=== PATIENT | male | born 1975 | race Caucasian/White ===

== ENCOUNTER 2019-05-05 14:19 | Emergency (ER) | payer SELFPAY ==
[~2019-05-05] VITALS: Ht 175.3 cm; Wt 81.8 kg
[2019-05-05 14:20] VITALS: Ht 175.3 cm; Wt 81.8 kg
[2019-05-05] MEDS ORDERED: SOD CHLORIDE 0.9% 1,000 ML IV STA (14:26)
[2019-05-05] MEDS ORDERED: LEVETIRACETAM 1000 MG (PMX) 100 ML IVPB STA (14:26)
--- NOTE | 2019-05-05 15:38 | ERD ---
ER Documentation Chief Complaint Chief Complaint R88, altered, pinpoint pupils. possible seizure back to police car, HPI 43-year-old male with a history of seizure disorder brought in by ambulance for altered mental status and seizure-like activity prior to arrival. Per police at bedside, patient was arrested then while in the back of the car, he started having seizure-like activity. It lasted for 30 seconds. Afterwards he was poorly responsive. EMS arrived and noted that the patient had pinpoint pupils. He was given Narcan without any significant improvement of his mental status. Currently the patient has just woken up and states that he does have a history of seizures but is not taking his medications regularly. He is supposed to be on Keppra and Dilantin. He states that he sometimes uses drugs but has not used drugs within the last 10 days. Usually he uses methamphetamines but not any heroin. Currently he has no physical complaints. ROS All systems reviewed and are negative except as per history of present illness. Medications Home Meds Unable to Obtain Active Prescriptions or Reported Meds Allergies Allergies: Coded Allergies: Penicillins (Verified Allergy, Unknown, 05/05/19) PMhx/Soc Medical and Surgical Hx: Unable to obtain Anesthesia Reaction: No Hx Neurological Disorder: Yes (Seizure disorder, ) Hx Respiratory Disorders: No Hx Cardiac Disorders: No Hx Psychiatric Problems: No Hx Miscellaneous Medical Probl: Yes (stomach cancer) Hx Alcohol Use: Yes Hx Substance Use: Yes Hx Tobacco Use: Yes Smoking Status: Current every day smoker FmHx Family History: No diabetes Physical Exam Vitals Vital Signs Date Temp Pulse Resp B/P (MAP) Pulse Ox O2 O2 Flow FiO2 Time Delivery Rate 05/05/19 64 16 124/80 98 Room Air 18:46 (95) 05/05/19 66 16 135/89 98 Room Air 16:31 (104) 05/05/19 97.9 70 23 148/92 98 14:20 (110) Physical Exam Const: No acute distress Head: Atraumatic Eyes: Normal Conjunctiva, PERRLA, EOMI ENT: Normal External Ears, Nose and Mouth. Neck: Full range of motion. No meningismus. Resp: Clear to auscultation bilaterally Cardio: Regular rate and rhythm, no murmurs Abd: Soft, non tender, non distended. Normal bowel sounds Skin: No petechiae or rashes Back: No midline or flank tenderness Ext: No cyanosis, or edema Neur: Awake and alert, oriented to self and year, cranial nerves intact, normal speech, strength and sensations intact in all 4 extremities. Psych: Normal Mood and Affect Result Diagram: 05/05/19 1440 05/05/19 1440 Results 24 hrs Laboratory Tests Test 05/05/19 14:34 05/05/19 14:40 Bedside Glucose 111 mg/dL White Blood Count 7.4 10^3/ul Red Blood Count 5.18 10^6/ul Hemoglobin 9.4 g/dl Hematocrit 34.7 % Mean Corpuscular Volume 67.0 fl Mean Corpuscular Hemoglobin 18.1 pg Mean Corpuscular Hemoglobin Concent 27.1 g/dl Red Cell Distribution Width % Platelet Count 483 10^3/UL Mean Platelet Volume 9.1 fl Immature Granulocytes % 0.100 % Neutrophils % % Segmented Neutrophils % (Manual) 61 % Lymphocytes % % Lymphocytes % (Manual) 27 % Reactive Lymphocytes % (Manual) 2 % Monocytes % % Monocytes % (Manual) 7 % Eosinophils % % Eosinophils % (Manual) 2 % Basophils % % Basophils % (Manual) 1 % Nucleated Red Blood Cells % 0.0 /100WBC Immature Granulocytes # 0.010 10^3/ul Neutrophils # 10^3/ul Lymphocytes (Manual) 1.9 10^3/ul Lymphocytes # 10^3/ul Reactive Lymphocytes # 0.1 10^3/ul Monocytes # 10^3/ul Monocytes # (Manual) 0.5 10^3/ul Eosinophils # 10^3/ul Basophils # 10^3/ul Basophils # (Manual) 0.0 10^3/ul Nucleated Red Blood Cells # 10^3/ul Platelet Estimate NORMAL Giant Platelets 1 % Polychromasia 1+ Hypochromasia 1+ Poikilocytosis 1+ Anisocytosis 1+ Microcytosis 1+ Ovalocytes 1+ Sodium Level 146 mmol/L Potassium Level 3.8 mmol/L Chloride Level 107 mmol/L Carbon Dioxide Level 27 mmol/L Anion Gap 12 Blood Urea Nitrogen 19 mg/dl Creatinine 1.30 mg/dl Est Glomerular Filtrat Rate mL/min > 60 mL/min Glucose Level 105 mg/dl Calcium Level 9.3 mg/dl Phenytoin (Dilantin) Level < 3.0 ug/ml Current Medications Medications Dose Sig/Ana Start Time Status Last (Trade) Ordered Route PRN Stop Time Admin Dose Reason Admin Sodium 1,000 ml @ Q1H STAT 05/05/19 DC 05/05/19 Chloride 1,000 mls/hr IV 14:26 15:10 05/05/19 15:25 100 ml @ ONCE STAT 05/05/19 DC 05/05/19 Levetiracetam 400 mls/hr IVPB 14:26 15:10 05/05/19 14:40 Phenytoin 300 mg ONCE ONCE 05/05/19 DC 05/05/19 (Dilantin) PO 18:30 18:26 05/05/19 18:31 Procedures/MDM EMERGENT LABS AND DIAGNOSTIC STUDIES: Lab Results above were reviewed and interpreted by me. CBC: Evidence of anemia, thrombocytosis BMP: Elevated creatinine, consistent with renal insufficiency, unclear etiology or chronicity. Mild hypernatremia, consistent with dehydration. No evidence of clinically significant electrolyte abnormality, acidosis, hypoglycemia Phenytoin level: Low, not in therapeutic range 12-lead EKG was interpreted by Verito Acosta MD: Normal Sinus Rhythm Normal axis Normal intervals No acute ST or T wave changes suggestive of acute ischemia or STEMI. Initial Nursing notes reviewed. Previous Medical Records requested via the Electronic Health Record. EMERGENCY DEPARTMENT COURSE / MEDICAL DECISION MAKING: Patient presents with altered mental status after seizure-like activity. He is afebrile with unremarkable vitals. Other etiologies for AMS include systemic illness, organ system dysfunction, drug intoxication or withdrawal, ETOH intoxication or withdrawal, psychiatric illness, head trauma, or neurologic disease. He is noncompliant with his medications. Upon arrival, he is neurologically intact. I do not suspect acute stroke or intracranial hemorrhage. Labs did show some evidence of dehydration for which she was given IV fluids. The patient was observed for about 5 hours with improvement of his mental status. He was treated with Dilantin orally and Keppra IV. He had no further seizures while here. I feel the patient is stable for discharge. I discussed with him t he importance of compliance with his seizure medications. Follow-up with his PCP was discussed within the next 2 to 3 days. Return precautions given. Patient's blood pressure was elevated (>120/80) but appears stable without evidence of hypertensive emergency or urgency. The patient was counseled about the risks of hypertension and urged to pursue outpatient monitoring and therapy within a week with their primary care physician. Departure Diagnosis: Primary Impression: Altered level of consciousness Additional Impression: Seizure disorder Condition: Stable STEFANY ACOSTA MD May 05, 2019 15:38
[2019-05-05] MEDS ORDERED: PHENYTOIN 100 MG CAP PO ONE (18:30)
[2019-05-05 18:46] VITALS: BP 124/80; PULSE 64; RESP 16
== END 2019-05-05 19:02 | disposition home or self-care (01) ==
LOC: E/R 14:19
DX: G40.909 Epilepsy, unspecified, not intractable, without status epilepticus (principal); R40.4 Transient alteration of awareness; F17.210 Nicotine dependence, cigarettes, uncomplicated; R40.2142 Coma scale, eyes open, spontaneous, at arrival to emergency department; R40.2252 Coma scale, best verbal response, oriented, at arrival to emergency department; Z85.028 Personal history of other malignant neoplasm of stomach
CPT/HCPCS: 80048; 80185; 82962; 85025; 93005; J1953; J7030; 36415; 96374